=== PATIENT | male | born 1975 | race Hispanic/Latino ===

== ENCOUNTER 2017-12-08 17:05 | Inpatient (IN) | payer BC, MEDICARE ==
[~2017-12-08] VITALS: Ht 180.3 cm; Wt 110.3 kg
[~2017-12-08 17:05] MED LIST: ATIVAN0.5 MG PO; Calcium Carbonate PO; LEVAQUIN500 MG PO; METOPROLOL TART50 MG PO; NIFEDIPINE ER30 M1 PO; Nifedipine PO; PRINIVIL20 MG PO; ROCALTROL0.25 MCG PO; ULTRAM50 MG PO
[2017-12-08] MEDS ORDERED: CARVEDILOL3.125 MG PO (17:21)
[2017-12-08] MEDS ORDERED: HYDROMORPHONE 1MG/1ML INJ IV STA (17:29)
[2017-12-08] MEDS ORDERED: ONDANSETRON HCL INJ 2 MG/ML VIAL IV STA (17:29)
[2017-12-08] MEDS ORDERED: CEFEPIME HCL 2 GM VIAL IV STA (17:44)
[2017-12-08 17:52] LABS: BASOPHILS % 0.1 % (0.0-1.0); LYMPHOCYTES # (AUTO) 0.8 (1.0-3.2); LYMPHOCYTES % 3.8 % (18.0-39.1); MEAN CORPUSCULAR HEMOGLOBIN 31.4 pg (28-32); MEAN CORPUSCULAR HGB CONC 34.3 g/dL (31-35); MEAN CORPUSCULAR VOLUME 91.6 fL (81-99); MONOCYTES # (AUTO) 0.6 (0.2-0.8); MONOCYTES % 2.9 % (4.4-11.3); NEUTROPHILS # (AUTO) 19.8 (2.1-6.9); NEUTROPHILS % 92.5 % (38.7-80.0); PLATELET COUNT 270 x10e3/uL (140-360); RED BLOOD COUNT 3.82 x10e6/uL (4.3-5.7); RED CELL DISTRIBUTION WIDTH 12.9 % (11.7-14.4)
[2017-12-08] MEDS ORDERED: DIATRIZOATE MEGL/DIATRIZOA SOD 30 ML BTL PO ONE (17:58)
[2017-12-08 18:39] LABS: BODY FLUID APPEARANCE SL.CLOUDY; BODY FLUID COLOR YELLOW; BODY FLUID TYPE PERITONEAL
[2017-12-08 18:40] LABS: RBC,BODY FLUID 165 cells/uL; WBC,BODY FLUID 165 cells/uL
[2017-12-08] MEDS ORDERED: SODIUM CHLORIDE 0.9% 50ML 50 ML ONE ×2 (18:40→23:05)
[2017-12-08 19:35] LABS: EOSINOPHILS,BODY FLUID 2 %; LYMPHOCYTES,BODY FLUID 26 %; MONO/MACROPHG,BODY FLUID 26 %; NEUTROPHILS,BODY FLUID 44 %; OTHER CELLS,BODY FLUID 2 %
[2017-12-08 19:56] LABS: ALBUMIN 3.8 g/dL (3.5-5.0); ALBUMIN/GLOBULIN RATIO 0.9 (0.8-2.0); CALCIUM 8.7 mg/dL (8.4-10.2); CREATININE, SERUM 14.75 mg/dL (0.72-1.25)
[2017-12-08 20:26] LABS: BILIRUBIN,URINE NEGATIVE (NEGATIVE); CLARITY,URINE CLEAR (CLEAR); COLOR,URINE YELLOW (YELLOW); KETONES,URINE NEGATIVE (NEGATIVE); LEUKOCYTE ESTERASE ,URINE NEGATIVE (NEGATIVE); NITRITE,URINE NEGATIVE (NEGATIVE); PROTEIN,URINE DIPSTICK 2+ (NEGATIVE); URINE UROBILINOGEN 0.2 mg/dL (0.2 - 1)
--- NOTE | 2017-12-08 20:27 | Diagnostic Imaging Report ---
EXAM: CT ABDOMEN/PELVIS WO DATE: 12/08/2017 5:50 PM INDICATION: \S\GENERALIZED ABD PAIN ON PD \S\[id number] \S\1930 \S.br\COMPARISON: None TECHNIQUE: The abdomen and pelvis were scanned using a multidetector helical scanner. Coronal and sagittal reformations were obtained. IV Contrast: 0 ml Isovue 300/370 FINDINGS: Lack of IV contrast decreases sensitivity in evaluating abdominal and pelvic organs. LOWER THORAX: Bibasilar atelectasis. LIVER/BILIARY: No masses. No ductal dilatation. GALLBLADDER: Unremarkable SPLEEN: Unremarkable PANCREAS: Unremarkable ADRENALS: No nodules KIDNEYS: Small bilateral kidneys. Metallic density or coils in the left interpolar kidney. No hydronephrosis. GI TRACT: Prominent proximal small bowel loops (up to 3 cm) likely related to distention from administered oral contrast. No evidence of high-grade obstruction. VESSELS: Minimal scattered atherosclerotic calcification PERITONEUM/RETROPERITONEUM: Moderate abdominal and pelvic free fluid. No free air LYMPH NODES: No lymphadenopathy REPRODUCTIVE ORGANS/BLADDER: Unremarkable SOFT TISSUES: Left-sided approach perineal dialysis catheter terminates in the right pelvis. Focal fluid is seen along the superficial aspect of the catheter BONES: Findings which can be seen with renal osteodystrophy with subchondral endplate and SI joint resorption. IMPRESSION: 1. Moderate volume ascites. 2. Prominent proximal small bowel loops likely related to distention from administered oral contrast. No evidence of high-grade obstruction. Signed by: Dr Radha Gibbons MD on 12/08/2017 8:24 PM
[2017-12-08] MEDS ORDERED: VANCOMYCIN 1GM/NS 250 ML 250 ML IV STA (20:41)
[2017-12-08] MEDS ORDERED: SODIUM CHLORIDE FLUSH 10 ML SYR INJ PRN (21:00)
[2017-12-08 21:06] LABS: RBC,URINE 21-50 /HPF (0-5); WBC,URINE (MAN) 0-5 /HPF (0-5)
[2017-12-08 21:07] LABS: BACTERIA,URINE FEW /HPF
[2017-12-08] MEDS: MORPHINE SULFATE 2 MG/ML SYR IV PRN (21:33)
[2017-12-08] MEDS: ONDANSETRON HCL INJ 2 MG/ML VIAL IV PRN (21:33)
[2017-12-08] MEDS: CEFEPIME HCL 1 GM VIAL IV SCH (23:40)
[2017-12-08] MEDS: DOCUSATE SODIUM 100 MG CAP PO SCH (23:40)
[2017-12-09] MEDS: ONDANSETRON HCL INJ 2 MG/ML VIAL IV PRN ×6 (01:00→21:52)
[2017-12-09] MEDS: MORPHINE SULFATE 2 MG/ML SYR IV PRN ×4 (01:00→13:40)
[2017-12-09] MEDS ORDERED: SODIUM CHLORIDE 0.9% 250ML 250 ML ONE ×2 (04:48→17:51)
[2017-12-09 05:21] LABS: BASOPHILS # (AUTO) 0.1 (0.0-0.1); BASOPHILS % 0.2 % (0.0-1.0); EOSINOPHILS % 0.1 % (0.0-6.0); HEMATOCRIT 30.8 % (38.2-49.6); HEMOGLOBIN 10.7 g/dL (14.0-18.0); LYMPHOCYTES # (AUTO) 1.1 (1.0-3.2); MEAN CORPUSCULAR HEMOGLOBIN 32.3 pg (28-32); MEAN CORPUSCULAR HGB CONC 34.7 g/dL (31-35); MEAN CORPUSCULAR VOLUME 93.1 fL (81-99); MONOCYTES # (AUTO) 0.6 (0.2-0.8); MONOCYTES % 2.3 % (4.4-11.3); NEUTROPHILS # (AUTO) 24.3 (2.1-6.9); NEUTROPHILS % 92.7 % (38.7-80.0); PLATELET COUNT 203 x10e3/uL (140-360); RED BLOOD COUNT 3.31 x10e6/uL (4.3-5.7)
[2017-12-09 05:42] LABS: ALBUMIN 3.1 g/dL (3.5-5.0); ALBUMIN/GLOBULIN RATIO 0.8 (0.8-2.0); ANION GAP 20.1 mmol/L (8-16); CALCIUM 8.3 mg/dL (8.4-10.2); CREATININE, SERUM 14.47 mg/dL (0.72-1.25); POTASSIUM 4.1 mmol/L (3.5-5.1)
[2017-12-09] MEDS: CEFEPIME HCL 1 GM VIAL IV SCH ×2 (06:11→14:32)
[2017-12-09] MEDS: DOCUSATE SODIUM 100 MG CAP PO SCH (09:45)
[2017-12-09 13:15] VITALS: BP 130/76
[2017-12-09 13:22] VITALS: BP 130/76
[2017-12-09] MEDS ORDERED: RENAGEL800 MG PO (14:33)
--- NOTE | 2017-12-09 16:28 | Consultation ---
DATE OF CONSULTATION: December 09, 2017 RENAL CONSULTATION REQUESTING PHYSICIAN: Dr. Anthony Donovan REASONS FOR CONSULTATION 1. End-stage renal disease management. 2. Fluids, electrolytes and acid-base management. 3. Hyponatremia. HISTORY OF PRESENT ILLNESS: This is a pleasant, 42-year-old man with history of: 1. End-stage renal disease on peritoneal dialysis. 2. Hypertension. 3. Anemia. 4. History of biopsy-proven IgA nephropathy. 5. Cystoscopy. 6. Peritoneal dialysis catheter placement. The patient was admitted to [facility] for possible peritonitis after the patient presented with chief complaint of worsening abdominal pain with nausea. PD fluid was sent for cell count and culture. He had some surgical intervention of his PD catheter last week. No report of chest pain, shortness of breath, diarrhea or headache at the present time. Reports subjective fever and constipation. Labs today show serum creatinine 14.4 with BUN of 87. Serum sodium is 133. PAST MEDICAL HISTORY: As per HPI. PAST SURGICAL HISTORY: As per HPI. ALLERGIES TO MEDICATIONS: PER MAR. SOCIAL HISTORY: Negative x3. FAMILY HISTORY: Positive for hypertension. REVIEW OF SYSTEMS: Positive for abdominal pain with subjective fever and nausea as per HPI. The rest of the review of systems is essentially negative at the present time. No complaints of chest pain, shortness of breath, diarrhea, visual loss or headache. Also reports constipation. PHYSICAL EXAMINATION GENERAL: Pleasant man in bed in no acute respiratory distress at the present time. VITAL SIGNS: Blood pressure is 127/82, pulse 99, respiratory rate 12. HEENT: Pupils are reactive to light. NECK: Supple. CHEST: Lungs are clear to auscultation bilaterally. CARDIOVASCULAR: S1 and S2. ABDOMEN: Soft, positive tenderness. EXTREMITIES: Trace edema. NEUROLOGIC: Awake and alert. PSYCHIATRIC: Anxious. LABS: Serum sodium is 133, potassium 4.1, chloride 94, bicarbonate 23, BUN 87, creatinine 14.4, calcium 8.3, albumin 3.1. Hemoglobin 10.7. CT abdomen findings noted. ASSESSMENT 1. End-stage renal disease. 2. Hyponatremia. 3. Fluid overload. 4. Anemia. 5. Leukocytosis. 6. (?)Peritonitis. 7. Hypertension. 8. Obesity. 9. Abdominal pain. PLAN 1. Will do peritoneal dialysis tonight per orders for metabolic/volume clearance. 2. Fluid restriction plus low salt diet plus ultrafiltration on peritoneal dialysis for hyponatremia and fluid overload. 3. Serum potassium/acid base stable. Will monitor. 4. Monitor serum calcium, phosphorus and magnesium levels. 5. Monitor H and H levels. Hemoglobin level is at goal. Epogen as needed. 6. Blood pressure is stable, monitor. 7. Monitor WBC count plus panculture plus PD fluid for cell count and culture plus antibiotics for infectious diseases. 8. Renal dose all medications. 9. Strict I's and O's and daily weights. 10. Stool softener plus p.r.n. laxative for constipation. 11. Plan discussed with the patient, family, and the patient's nurse. Thank you for this interesting consult. We will continue to closely follow the patient with you. Please do not hesitate to call us for any further questions. Job#: [id number]
[2017-12-09 16:34] VITALS: BP 135/77
--- NOTE | 2017-12-09 16:36 | History and Physical ---
Medicine History and Physical covering for Paulette Bobby for today 12/09/2017, starting tomorrow, Dr. Binh Nickerson to cover for medicine. CHEST: Abdominal discomfort. HISTORY OF PRESENT ILLNESS: Mr. Soto is a 42-year-old man with history of hypertension and end-stage renal disease on peritoneal dialysis for now [address] Lott. Recent catheter exchanged approximately one week ago for malfunctioning device. He presents via the emergency department with complaints of abdominal discomfort that has gradually worsened over the last 2 days. Abdominal discomfort is described as diffuse, worse with coughing or deep inspiration. He has increasing abdominal girth. He denies any chest pain, lightheadedness, palpitations or other complaints. REVIEW OF SYSTEMS: A 12-system review negative except for as noted above. ALLERGIES: NONE REPORTED. PAST MEDICAL HISTORY: Hypertension and end-stage renal disease on peritoneal dialysis. SOCIAL HISTORY: Former history of alcohol abuse, none recent. Denies smoking. Denies drugs. FAMILY HISTORY: Noncontributory. MEDICATIONS: Reviewed. PHYSICAL EXAMINATION: VITAL SIGNS: Heart rate 80, blood pressure 130/70, O2 sat 96%. BMI of 34.7. Afebrile. GENERAL: No acute distress, alert and oriented x3. NECK: No JVD. CHEST: Clear to auscultation bilaterally. HEENT: Mucosa moist. CARDIOVASCULAR: Regular rate and rhythm. Normal S1 and S2. No S3, no S4, no murmurs, no rubs. ABDOMEN: Distended. Tender to palpation. Some mild borderline rebound which is diffuse. EXTREMITIES: Trace edema. STUDIES: Sodium 133, potassium 4.1, chloride 94, bicarbonate 23, BUN 87, creatinine 14.4, glucose 71, hemoglobin 10.7. White blood cells 26.2, platelets 203,000. AST 15, ALT 11, alkaline phosphatase 84, total bilirubin 0.9. Has neutrophilia/left shift. CT of the abdomen does not report any perforated viscus. ASSESSMENT: 1. Secondary bacterial peritonitis in a patient with end-stage renal disease on peritoneal dialysis with recent catheter exchange. 2. Hypertension. RECOMMENDATIONS: 1. Antibiotics initiated cefepime. Will continue. 2. Nephrology, Dr. Lott, has been consulted; appreciate input. 3. Infectious disease has been consulted. SCDs and TEDs. Peritoneal fluid sent for studies and consistent with above-listed diagnosis. 4. Guarded prognosis. Admit to the hospital. Job#: [id number] KVNG
[2017-12-09] MEDS: CARVEDILOL 3.125 MG TAB PO SCH (17:35)
[2017-12-09] MEDS: SEVELAMER CARBONATE 800 MG TAB PO SCH (17:35)
--- NOTE | 2017-12-09 17:53 | Consultation ---
DATE OF CONSULTATION: REASON FOR CONSULTATION: Sepsis present on admission, peritonitis. HISTORY OF PRESENT ILLNESS: This patient is a very pleasant, 42-year-old male with a history of hypertension, end-stage disease on hemodialysis, history of biopsy-proven IgA nephropathy, and cystoscopy, who has been on peritoneal dialysis for 2 years now; but the catheter started to get loose, so it was changed a week ago. He went home and started peritoneal dialysis. He came to the emergency room with fever, chills, abdominal pain, shortness of breath, not doing well. He came to the emergency room, and infectious disease was consulted. Discussed with the ER physician. Currently the patient is lying in bed comfortably. He is still short of breath. PAST MEDICAL HISTORY: As above. PAST SURGICAL HISTORY: As above. ALLERGIES: NKA. SOCIAL HISTORY: No smoking, drug abuse or alcohol abuse. FAMILY HISTORY: Hypertension. REVIEW OF SYSTEMS HEENT: There is some headache. No visual changes or hearing changes. GI: There is some nausea. No vomiting or diarrhea. : No history of frequency. SKIN: No rash. He does have abdominal pain. Patient looks also short of breath. LABORATORY DATA: Reviewed. The culture from the fluid is already showing gram-negative rods. PHYSICAL EXAMINATION GENERAL: He is currently alert, oriented, does not seem to be in acute distress. VITALS: Stable, currently afebrile. HEENT: Normocephalic. Not icteric. NECK: Supple. CHEST: Clear. HEART: S1, S2. No S3, S4 or murmur. ABDOMEN: Soft. Diffuse discomfort. EXTREMITIES Edema. The fluid looks kind of greenish. IMPRESSION 1. Peritonitis secondary to peritoneal dialysis, gram negative. Will put him on cefepime 1 gram IV piggyback daily and Cipro 500 mg IV piggyback daily. Removal of the peritoneal dialysis. Discussed with the patient. I would like to give dialysis and gentamicin if possible. Will discuss with renal. Obtain blood cultures. 2. End-stage renal disease. 3. Will follow. Job#: [id number]
[2017-12-09] MEDS: MORPHINE SULFATE INJ 4 MG/ML INJ IV PRN ×2 (17:55→21:52)
[2017-12-09] MEDS: CIPROFLOXACIN 400 MG/D5W 200ML 200 ML IV SCH (18:02)
[2017-12-09 20:00] VITALS: BP 108/71
[2017-12-10] VITALS (7 sets, daily range): BP systolic 116–142; BP diastolic 62–80
[2017-12-10] MEDS: ONDANSETRON HCL INJ 2 MG/ML VIAL IV PRN ×5 (02:00→19:58)
[2017-12-10] MEDS: MORPHINE SULFATE INJ 4 MG/ML INJ IV PRN ×5 (02:00→19:58)
[2017-12-10 06:14] LABS: ANION GAP 20.3 mmol/L (8-16); CREATININE, SERUM 15.64 mg/dL (0.72-1.25); MAGNESIUM 1.5 MG/DL (1.3-2.1); POTASSIUM 4.3 mmol/L (3.5-5.1)
[2017-12-10 06:50] LABS: PHOSPHORUS 8.3 MG/DL (2.3-4.7)
[2017-12-10] MEDS: SEVELAMER CARBONATE 800 MG TAB PO SCH ×3 (08:00→16:58)
[2017-12-10] MEDS: CEFEPIME HCL 1 GM VIAL IV SCH (09:23)
[2017-12-10] MEDS: DOCUSATE SODIUM 100 MG CAP PO SCH ×2 (09:23→16:58)
[2017-12-10] MEDS: CARVEDILOL 3.125 MG TAB PO SCH ×2 (09:23→16:58)
[2017-12-10 11:35] LABS: INR 1.66; PROTHROMBIN TIME 18.4 seconds (11.9-14.5)
[2017-12-10 11:36] LABS: PARTIAL THROMBOPLASTIN TIME 43.5 seconds (23.8-35.5)
[2017-12-10] MEDS ORDERED: GENTAMICIN 120MG/NS 100ML 100 ML IV ONE (15:00)
[2017-12-10] MEDS ORDERED: LIDOCAINE HCL 1% LOCAL INJ 20 ML VIAL ONE (15:01)
[2017-12-10] MEDS: CIPROFLOXACIN 400 MG/D5W 200ML 200 ML IV SCH (16:58)
--- NOTE | 2017-12-10 17:00 | Diagnostic Imaging Report ---
PROCEDURE: A single AP view of the chest. COMPARISON: None. INDICATIONS: POST LINE PLACEMENT FINDINGS: Lines/tubes: Interval placement of a left IJ non-tunneled central line which terminates in the expected region of the SVC. Lungs: Low lung volumes. Mild left perihilar opacities. Right lung is clear. Pleura: There is no pleural effusion or pneumothorax. Heart and mediastinum: The heart and the mediastinum are unremarkable. Bones: No acute bony abnormality. IMPRESSION: Left IJ non-tunneled catheter terminates in the expected region of the SVC. No evidence of pneumothorax. Low lung volumes with perihilar opacities which could represent atelectasis. Asymmetric edema or pneumonia can have a similar appearance. Dictated by: BRITTANY GILLIAM M.D. on 12/10/2017 at 17:06 Electronically approved by: BRITTANY GILLIAM M.D. on 12/10/2017 at 17:06
--- NOTE | 2017-12-10 17:02 | Diagnostic Imaging Report ---
PROCEDURE:US GUIDANCE FOR VASCULAR ACCESS COMPARISON:None. INDICATIONS:TRIALYSIS CATH FINDINGS:Ultrasound evaluation of potential access sites was performed. The right IJ vein appeared occluded. The left IJ vein was patent. After successfully identifying a patent vessel, US guidance was used to puncture the left IJ vein. A permanent recording was created for the patient record. CONCLUSION:Successful ultrasound guided access into the left IJ vein. The right IJ vein appeared occluded. Please refer to the dictation from the Trialysis catheter placement for further details. Dictated by: BRITTANY GILLIAM M.D. on 12/10/2017 at 17:07 Electronically approved by: BRITTANY GILLIAM M.D. on 12/10/2017 at 17:07
--- NOTE | 2017-12-10 17:17 | Diagnostic Imaging Report ---
PROCEDURE:NON-TUNNELLED CVC CATH PLACMNT COMPARISON:None. INDICATIONS: Requiring hemodialysis access COMPLICATIONS: No immediate complications MEDICATIONS: 10 cc of 1% subcutaneous lidocaine BLOOD LOSS: Minimal PROCEDURE: Initial ultrasound demonstrated occluded right internal jugular vein with a right external jugular vein collateral. Left internal jugular vein appeared patent and compressible. The left neck was prepped and draped in the usual sterile fashion. Left IJ vein was accessed with ultrasound guidance with a micropuncture needle. An .018'' wire was placed to secure access. A microsheath was placed and the .018'' wire was exchanged for an .035'' wire. Serial dilatation was performed. Subsequently, a 13 Fr x 20 cm Trialysis catheter was placed. The wire was removed. Brisk blood was aspirated from each lumen. Saline was flushed into each lumen. The catheter was secured with Ethilon sutures and a sterile dressing was placed. Post procedural chest radiograph demonstrated that the catheter terminated in the expected location of the SVC with no evidence of kinking or pneumothorax. CONCLUSION: Left IJ non-tunneled hemodialysis catheter (13 Fr x 20 cm Trialysis catheter) placement with ultrasound guidance. Catheter is ready for immediate use. Dictated by: BRITTANY GILLIAM M.D. on 12/10/2017 at 17:23 Electronically approved by: BRITTANY GILLIAM M.D. on 12/10/2017 at 17:23
[2017-12-10] MEDS ORDERED: METOCLOPRAMIDE HCL 10 MG/2ML VIAL IV PRN (18:15)
[2017-12-10] MEDS ORDERED: SODIUM CHLORIDE 0.9% 1000ML 1,000 ML ONE (21:50)
[2017-12-10] MEDS ORDERED: HEPARIN SOD (PORCINE) 5,000 UNIT/ML VIAL ONE (22:41)
[2017-12-10] MEDS ORDERED: HEPARIN SOD (PORCINE) 1000 UNIT/ML SDV ONE (22:43)
[2017-12-11] VITALS (7 sets, daily range): BP systolic 109–147; BP diastolic 66–93
--- NOTE | 2017-12-11 00:22 | Progress Note ---
DATE: December 10, 2017 INTERNAL MEDICINE PROGRESS NOTE This is coverage for Dr. Carson Bobby. SUBJECTIVE: Mr. Soto was seen and examined at bedside. He is on renal diet. He is eating about 70% of his tray. He is moving independently, although with some pain. Peritoneal cell count ended up being 165 white blood cells. 94% oxygen saturation. He had bowel movement. REVIEW OF SYSTEMS: No headaches, no double vision. OBJECTIVE VITAL SIGNS: Afebrile, vital signs noted per electronic record. GENERAL: In no acute distress, alert and calm. HEENT: Normocephalic, atraumatic. NECK: Supple. Throat midline. LUNGS: Bilateral air entry, decreased breath sounds at the base. CARDIOVASCULAR: S1, S2. No murmurs, rubs or gallops. ABDOMEN: Soft, nontender. EXTREMITIES: No clubbing, no cyanosis. There is no edema. INTEGUMENT: No rash, no purpura. LABS: 127 sodium, 4.3 potassium, 100 BUN, 15.6 creatinine. 26 white count, 31 hematocrit. Albumin is 3.1. Phosphorus is 8.3. IMPRESSIONS AND PLAN 1. Pseudomonas secondary to bacterial peritonitis. 2. infected peritoneal dialysis catheter. 3. End-stage renal disease, IgA nephropathy. 4. Hypertension. 5. Anemia. 6. Mild constipation. 7. Hyponatremia. 8. Worsening leukocytosis. Emergent hemodialysis catheter placement was requested. Peritoneal dialysis catheter to be removed soon by surgeon. Continue IV antibiotics by ID quality consultant. Continue pain management, which he is getting medicines every 4-5 hours for now and will follow this. Continue to follow up blood pressure and the increasing white count. Job#: [id number] CQ
[2017-12-11] MEDS: ONDANSETRON HCL INJ 2 MG/ML VIAL IV PRN ×4 (00:43→18:20)
[2017-12-11] MEDS: MORPHINE SULFATE INJ 4 MG/ML INJ IV PRN ×2 (00:43→06:13)
[2017-12-11] MEDS ORDERED: LACTULOSE SYRUP 20 GM/30 ML UDC PO PRN (05:45)
[2017-12-11 05:49] LABS: BASOPHILS % 0.2 % (0.0-1.0); EOSINOPHILS # (AUTO) 0.7 (0.0-0.4); EOSINOPHILS % 3.4 % (0.0-6.0); HEMATOCRIT 26.3 % (38.2-49.6); LYMPHOCYTES # (AUTO) 0.7 (1.0-3.2); LYMPHOCYTES % 3.6 % (18.0-39.1); MEAN CORPUSCULAR HEMOGLOBIN 31.6 pg (28-32); MEAN CORPUSCULAR HGB CONC 34.2 g/dL (31-35); MEAN CORPUSCULAR VOLUME 92.3 fL (81-99); MONOCYTES # (AUTO) 0.9 (0.2-0.8); MONOCYTES % 4.5 % (4.4-11.3); NEUTROPHILS # (AUTO) 17.1 (2.1-6.9); NEUTROPHILS % 87.4 % (38.7-80.0); PLATELET COUNT 189 x10e3/uL (140-360); RED BLOOD COUNT 2.85 x10e6/uL (4.3-5.7); RED CELL DISTRIBUTION WIDTH 12.9 % (11.7-14.4)
[2017-12-11 06:26] LABS: ANION GAP 18.8 mmol/L (8-16); CALCIUM 9.5 mg/dL (8.4-10.2); CREATININE, SERUM 12.97 mg/dL (0.72-1.25); MAGNESIUM 1.8 MG/DL (1.3-2.1); POTASSIUM 3.8 mmol/L (3.5-5.1)
[2017-12-11 06:51] LABS: PHOSPHORUS 6.4 MG/DL (2.3-4.7)
[2017-12-11] MEDS: SEVELAMER CARBONATE 800 MG TAB PO SCH ×3 (07:41→17:00)
--- NOTE | 2017-12-11 08:05 | Consultation ---
DATE OF CONSULTATION: December 11, 2017 REFERRING PHYSICIANS: Dr. Sallie Gunter and Dr. Paulette Bobby. HISTORY OF PRESENT ILLNESS: The patient is a 42-year-old male with history of hypertension and end-stage renal disease who presented with complaints of abdominal pain. He had a new peritoneal dialysis catheter placed about 10 days ago. Cultures from the peritoneal fluid grew pseudomonas. The patient continues to complain of abdominal pain. He currently has a temporary hemodialysis catheter in place and started on hemodialysis. PAST MEDICAL HISTORY: Significant for hypertension and end-stage renal disease. Has been on peritoneal dialysis for several years. MEDICATIONS: Listed in chart. ALLERGIES: NO KNOWN ALLERGIES. PREVIOUS SURGERIES: Include placement of hemodialysis catheter. FAMILY HISTORY: Noncontributory. SOCIAL HISTORY: The patient has history of alcohol use. Does not drink now. Does not smoke cigarettes. REVIEW OF SYSTEMS: As stated above. He has not had fever. PHYSICAL EXAMINATION GENERAL: The patient is awake and alert. VITAL SIGNS: Normal. HEENT: Unremarkable. NECK: Dialysis catheter in place. LUNGS: Equal breath sounds are clear bilaterally. CARDIAC: Regular rate and rhythm. ABDOMEN: Mildly distended. There is diffuse tenderness with diffuse signs of peritonitis. EXTREMITIES: Slight edema. LAB TESTS: White blood cell count today is 19.6, down from 26,000 two days ago. Chemistries show elevated BUN and creatinine. ASSESSMENT: A 42-year-old male with primary bacterial peritonitis secondary to peritoneal dialysis with probably infected dialysis catheter. PLAN: Removal of the dialysis catheter to be done tomorrow. Procedure was explained to the patient. Thank you for asking see to see Mr. Soto. Job#: [id number]
[2017-12-11] MEDS ORDERED: KETOROLAC TROMETHAMINE 30 MG/ML VIAL IV STA (09:53)
[2017-12-11] MEDS: HYDROMORPHONE 1MG/1ML INJ IV PRN ×2 (10:50→18:20)
[2017-12-11] MEDS ORDERED: SODIUM CHLORIDE 0.9% 250ML 500 ML IV PRN (13:15)
[2017-12-11] MEDS ORDERED: SODIUM CHLORIDE 0.9% 1000ML 2,000 ML IV PRN (13:15)
[2017-12-11] MEDS ORDERED: HEPARIN SOD (PORCINE) 1000 UNIT/ML SDV IV PRN (13:15)
[2017-12-11] MEDS ORDERED: ALBUMIN 25% 12.5GM 0.25 GM/ML BTL IV PRN (13:15)
[2017-12-11] MEDS ORDERED: MANNITOL 25% 12.5GM/50 ML VIAL IV PRN (13:15)
[2017-12-11] MEDS ORDERED: KETOROLAC TROMETHAMINE 30 MG/ML VIAL IV NR (14:30)
[2017-12-11] MEDS: CARVEDILOL 3.125 MG TAB PO SCH ×2 (14:32→17:00)
[2017-12-11] MEDS: CEFEPIME HCL 1 GM VIAL IV SCH (14:32)
[2017-12-11] MEDS: DOCUSATE SODIUM 100 MG CAP PO SCH ×2 (14:34→18:20)
[2017-12-11] MEDS: CIPROFLOXACIN 400 MG/D5W 200ML 200 ML IV SCH (18:20)
[2017-12-12] VITALS (8 sets, daily range): BP systolic 119–149; BP diastolic 60–94
[2017-12-12] MEDS: ONDANSETRON HCL INJ 2 MG/ML VIAL IV PRN (01:14)
[2017-12-12] MEDS: HYDROMORPHONE 1MG/1ML INJ IV PRN ×4 (01:14→20:00)
[2017-12-12 05:51] LABS: BASOPHILS # (AUTO) 0.1 (0.0-0.1); BASOPHILS % 0.3 % (0.0-1.0); EOSINOPHILS # (AUTO) 0.3 (0.0-0.4); EOSINOPHILS % 1.8 % (0.0-6.0); HEMATOCRIT 29.3 % (38.2-49.6); HEMOGLOBIN 9.8 g/dL (14.0-18.0); LYMPHOCYTES # (AUTO) 0.8 (1.0-3.2); LYMPHOCYTES % 4.5 % (18.0-39.1); MEAN CORPUSCULAR HEMOGLOBIN 31.6 pg (28-32); MEAN CORPUSCULAR HGB CONC 33.4 g/dL (31-35); MEAN CORPUSCULAR VOLUME 94.5 fL (81-99); MONOCYTES # (AUTO) 1.2 (0.2-0.8); MONOCYTES % 6.5 % (4.4-11.3); NEUTROPHILS % 85.9 % (38.7-80.0); PLATELET COUNT 247 x10e3/uL (140-360)
[2017-12-12 06:07] LABS: INR 1.35; PROTHROMBIN TIME 15.7 seconds (11.9-14.5)
--- NOTE | 2017-12-12 06:19 | Progress Note ---
DATE: December 11, 2017 INTERNAL MEDICINE PROGRESS NOTE This is coverage for Dr. Bobby. SUBJECTIVE: Patient was seen and examined at bedside. Patient was on room air FiO2. No bowel movements. No respiratory distress overnight. Still some abdominal pain which is very limiting and requiring some pain medicines. Hemodialysis catheter temporary still in IJ position, left side. Patient had hemodialysis the day before. Peritoneal dialysis catheter still in place. REVIEW OF SYSTEMS: No headaches, no double vision. OBJECTIVE: VITAL SIGNS: Afebrile, vital signs noted per electronic record. GENERAL: In no acute distress, alert and calm. HEENT: Normocephalic, atraumatic. NECK: Supple. Throat midline. LUNGS: Bilateral air entry, limited air entry due to splinting. ABDOMEN: Obese, slight distended, and some pain. EXTREMITIES: No clubbing, no cyanosis, there is trace edema. INTEGUMENT: No rash, no purpura. IMPRESSION AND PLAN: 1. Pseudomonas bacterial peritonitis, secondary. 2. Infected peritoneal dialysis catheter. 3. End-stage renal disease, Immunoglobulin A nephropathy. 4. Hypertension. 5. Anemia. 6. Constipation. 7. Hyponatremia. 8. Significant leukocytosis. 9. Abdominal pain. Peritoneal dialysis catheter to be removed tomorrow. Hemodialysis to be continued according to schedule per renal. They are getting temporary dialysis chair as most likely outpatient solution for near term. Continue intravenous antibiotics by the infectious disease datastage consultant. Pain management to be continued. Repeat blood count tomorrow and ensure improvement. Currently on ciprofloxacin and cefepime as antibiotics. Job#: [id number]
[2017-12-12 06:25] LABS: ALBUMIN 2.7 g/dL (3.5-5.0); ALBUMIN/GLOBULIN RATIO 0.6 (0.8-2.0); CALCIUM 9.5 mg/dL (8.4-10.2); CREATININE, SERUM 10.35 mg/dL (0.72-1.25)
--- NOTE | 2017-12-12 06:45 | Diagnostic Imaging Report ---
EXAM: CHEST SINGLE (PORTABLE), AP 1 view INDICATION: Congestive heart failure COMPARISON: AP view the chest December 10, 2017 FINDINGS: LINES/TUBES: Left internal jugular vein central line with tip terminating at the expected location of the left brachiocephalic vein/superior vena cava junction. LUNGS: Mild bibasilar atelectasis PLEURA: No effusions or pneumothorax. HEART AND MEDIASTINUM: Stable BONES AND SOFT TISSUES: No acute findings. IMPRESSION: Interval placement of left internal jugular vein central line, otherwise no significant interval change in appearance of the chest. Signed by: Dr. Bernadine Loera M.D. on 12/12/2017 6:41 AM
[2017-12-12 06:47] LABS: PHOSPHORUS 5.5 MG/DL (2.3-4.7)
[2017-12-12] MEDS: CARVEDILOL 3.125 MG TAB PO SCH ×2 (08:00→17:00)
[2017-12-12] MEDS: SEVELAMER CARBONATE 800 MG TAB PO SCH ×3 (08:00→17:00)
[2017-12-12] MEDS: DOCUSATE SODIUM 100 MG CAP PO SCH ×2 (09:00→17:00)
[2017-12-12] MEDS: CEFEPIME HCL 1 GM VIAL IV SCH (09:00)
[2017-12-12] MEDS ORDERED: HYDROMORPHONE 1MG/1ML INJ IV STA (10:58)
[2017-12-12] MEDS ORDERED: SODIUM CHLORIDE 0.9% 500ML 500 ML ONE (13:19)
[2017-12-12] MEDS ORDERED: LIDOCAINE HCL 1% LOCAL INJ 20 ML VIAL ONE (13:37)
--- NOTE | 2017-12-12 15:44 | Operative Report ---
DATE OF PROCEDURE: December 12, 2017 PREOPERATIVE DIAGNOSES: 1. Primary peritonitis. 2. Infected peritoneal dialysis catheter. POSTOPERATIVE DIAGNOSES: 1. Primary peritonitis. 2. Infected peritoneal dialysis catheter. PROCEDURE PERFORMED: Removal peritoneal dialysis catheter. HAT MEASURER: None. ANESTHESIA: General. INDICATIONS AND FINDINGS: Patient is a 42-year-old male who was admitted to the hospital with findings suggestive of peritonitis and infected peritoneal dialysis catheter. At surgery there was cloudy fluid in the peritoneal cavity, which was removed. Sample was sent for culture and sensitivity and the catheter was removed intact. TECHNIQUE: After adequate general anesthesia with the patient in the supine position, the abdomen was prepped and draped in sterile fashion with [place] solution. Over the area of the second cuff, incision was made and carried down through subcutaneous tissue. The catheter was identified and followed down to the cuff. The cuff was freed from the surrounding tissues and the catheter was then delivered from the peritoneal cavity intact. The fluid from the peritoneal cavity was aspirated as much as possible and samples were taken for culture and sensitivity. The second cuff was also freed from the subcutaneous tissue and the catheter was completely removed. Hemostasis was seen to be adequate. The wound was irrigated with saline. The wound was then closed with 3-0 Vicryl to the deep subcutaneous tissue and susan for the skin. A sterile dressing was applied. Patient tolerated procedure well. Estimated blood loss was less than 5 mL. There were no complications. All counts were correct. Patient was taken to the recovery room in satisfactory condition. Job#: [id number]
[2017-12-12] MEDS ORDERED: MIDAZOLAM HCL 2 MG/2 ML VIAL ONE (16:38)
[2017-12-12] MEDS ORDERED: FENTANYL CITRATE/PF 100MCG/2 ML INJ ONE (16:38)
[2017-12-12] MEDS ORDERED: ONDANSETRON HCL INJ 2 MG/ML VIAL ONE (17:09)
[2017-12-12] MEDS ORDERED: SEVOFLURANE INHAL SOLN 250 ML PEN BTL ONE (17:09)
[2017-12-12] MEDS ORDERED: LIDOCAINE HCL 2% LOCAL INJ 5 ML SDV VIAL INJ ONE (17:09)
[2017-12-12] MEDS ORDERED: DEXAMETHASONE SOD PHOS INJ 4 MG/ML VIAL ONE (17:09)
[2017-12-12] MEDS ORDERED: PROPOFOL IV EMULSION 10 MG/ML 20 ML VIAL ONE (17:09)
[2017-12-12] MEDS: CIPROFLOXACIN 400 MG/D5W 200ML 200 ML IV SCH (17:30)
[2017-12-13] VITALS (8 sets, daily range): BP systolic 143–152; BP diastolic 86–102
--- NOTE | 2017-12-13 03:04 | Progress Note ---
DATE: December 12, 2017 INTERNAL MEDICINE PROGRESS NOTE This is coverage for Dr. Bobby. SUBJECTIVE: Mr. Soto was seen and examined at bedside. He had dialysis today. 97% oxygen saturation on room air. 0.7 L in, 2.3 L out recorded. Chest x-ray is mostly clear except for low lung volumes. He is having a lot of pain. Patient was scheduled for removal of peritoneal dialysis catheter which was done successfully by surgeon. REVIEW OF SYSTEMS: No bleeding, no diarrhea. OBJECTIVE: VITAL SIGNS: Afebrile, vital signs noted per electronic record. GENERAL: In no acute distress, alert and calm, but looks very much in pain. HEENT: Normocephalic, atraumatic. Throat midline. NECK: Supple. LUNGS: Bilateral air entry, decreased breath sounds at base, a few rhonchi. CARDIOVASCULAR: S1, S2. No murmurs, rubs or gallops. ABDOMEN: Soft, nontender. EXTREMITIES: No clubbing, no cyanosis. There is no large edema. INTEGUMENT: No rash or purpura. LABS: 130 sodium, 10.3 creatinine. 19 white count, 29 hematocrit. IMPRESSION: 1. Bacterial peritonitis, pseudomonas. 2. Secondary . 3. Infected peritoneal dialysis catheter. 4. End-stage renal disease, IgA nephropathy. 5. Hypertension. 6. Anemia. 7. Mild constipation. 8. Hyponatremia. 9. Leukocytosis. PLAN: Continue hemodialysis today. Would go 4 L out. Thereafter, we hope to get him to operating room which he did have. Continue postoperative wound care thereafter. Recheck labs tomorrow and make sure the white count improves. We expect changing to permanent dialysis catheter as blood cultures come back negative. The patient is on replacement for outpatient dialysis, but will likely be in the hospital until next week given the severity of the peritoneal infection. Continue IV antibiotics. Job#: [id number]
[2017-12-13] MEDS: HYDROMORPHONE 1MG/1ML INJ IV PRN ×2 (03:16→09:35)
[2017-12-13 05:46] LABS: BASOPHILS # (AUTO) 0.1 (0.0-0.1); BASOPHILS % 0.3 % (0.0-1.0); HEMATOCRIT 27.7 % (38.2-49.6); HEMOGLOBIN 9.4 g/dL (14.0-18.0); LYMPHOCYTES # (AUTO) 0.6 (1.0-3.2); LYMPHOCYTES % 3.1 % (18.0-39.1); MEAN CORPUSCULAR HEMOGLOBIN 31.9 pg (28-32); MEAN CORPUSCULAR HGB CONC 33.9 g/dL (31-35); MEAN CORPUSCULAR VOLUME 93.9 fL (81-99); MONOCYTES # (AUTO) 0.9 (0.2-0.8); MONOCYTES % 4.3 % (4.4-11.3); NEUTROPHILS # (AUTO) 18.2 (2.1-6.9); NEUTROPHILS % 91.2 % (38.7-80.0); PLATELET COUNT 244 x10e3/uL (140-360); RED BLOOD COUNT 2.95 x10e6/uL (4.3-5.7)
[2017-12-13 06:13] LABS: ANION GAP 21.6 mmol/L (8-16); CALCIUM 9.4 mg/dL (8.4-10.2); CREATININE, SERUM 8.69 mg/dL (0.72-1.25); MAGNESIUM 1.9 MG/DL (1.3-2.1); POTASSIUM 4.6 mmol/L (3.5-5.1)
[2017-12-13] MEDS: CEFEPIME HCL 1 GM VIAL IV SCH (08:00)
[2017-12-13] MEDS: CARVEDILOL 3.125 MG TAB PO SCH ×2 (08:00→17:00)
[2017-12-13] MEDS: SEVELAMER CARBONATE 800 MG TAB PO SCH ×3 (08:00→17:00)
[2017-12-13] MEDS: DOCUSATE SODIUM 100 MG CAP PO SCH ×2 (08:00→17:00)
[2017-12-13] MEDS: CLONIDINE HCL 0.1 MG TAB PO SCH ×2 (17:00→21:26)
[2017-12-13] MEDS: CIPROFLOXACIN 400 MG/D5W 200ML 200 ML IV SCH (17:30)
[2017-12-14] VITALS (13 sets, daily range): BP systolic 105–173; BP diastolic 60–110
--- NOTE | 2017-12-14 01:02 | Progress Note ---
DATE: December 13, 2017 INTERNAL MEDICINE PROGRESS NOTE This is coverage for Dr. Bobby. SUBJECTIVE: Mr. Hansen was seen and examined at bedside. He feels much better after the peritoneal catheter was successfully removed yesterday. Much less pain. He is eating almost normal. We have confirmation that hemodialysis outpatient setup has been made. REVIEW OF SYSTEMS: No diarrhea, no bleeding. There is some constipation slightly. OBJECTIVE: VITAL SIGNS: Afebrile, vital signs noted per electronic record. GENERAL: In no acute distress, looks less pale, more energy. HEENT: Normocephalic, atraumatic. NECK: Supple. Throat midline. LUNGS: Bilateral air entry, low lung volumes, but clear. CARDIOVASCULAR: S1, S2. No murmurs, rubs, or gallops. ABDOMEN: Soft, nontender. EXTREMITIES: No clubbing, no cyanosis, there is the small edema. INTEGUMENT: No rash, no purpura. LABS: Include 20 white count, 29 hematocrit, 244,000 platelets. 133 sodium, 4.6 potassium, 48 BUN, 8.7 creatinine. IMPRESSION AND PLAN: 1. Infected peritoneal dialysis catheter. 2. Secondary peritonitis. 3. 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 4. Hypertension, anemia, mild constipation, hyponatremia. 5. Persistent leukocytosis. Continue antibiotics against Pseudomonas infection. Follow up postoperative wound care. Pain medicines have been decreased over last day due to decreased needs. Continue to follow up serial electrolytes, ensure the blood count improves tomorrow, namely the white blood cell count. Continue to optimize nutrition. As he gets better, likely tomorrow will get a permanent dialysis access that is tunneled. Job#: [id number]
[2017-12-14 05:51] LABS: BASOPHILS # (AUTO) 0.1 (0.0-0.1); BASOPHILS % 0.3 % (0.0-1.0); EOSINOPHILS # (AUTO) 0.2 (0.0-0.4); EOSINOPHILS % 1.3 % (0.0-6.0); HEMATOCRIT 26.9 % (38.2-49.6); HEMOGLOBIN 8.9 g/dL (14.0-18.0); LYMPHOCYTES # (AUTO) 1.1 (1.0-3.2); LYMPHOCYTES % 6.7 % (18.0-39.1); MEAN CORPUSCULAR HEMOGLOBIN 31.3 pg (28-32); MEAN CORPUSCULAR HGB CONC 33.1 g/dL (31-35); MEAN CORPUSCULAR VOLUME 94.7 fL (81-99); MONOCYTES # (AUTO) 1.1 (0.2-0.8); NEUTROPHILS # (AUTO) 13.4 (2.1-6.9); NEUTROPHILS % 83.2 % (38.7-80.0); PLATELET COUNT 263 x10e3/uL (140-360); RED BLOOD COUNT 2.84 x10e6/uL (4.3-5.7); RED CELL DISTRIBUTION WIDTH 12.8 % (11.7-14.4)
[2017-12-14] MEDS ORDERED: MIDAZOLAM HCL 2 MG/2 ML VIAL ONE ×2 (07:24→09:00)
[2017-12-14] MEDS ORDERED: SODIUM CHLORIDE 0.9% 500ML 1,000 ML ONE (07:24)
[2017-12-14] MEDS ORDERED: FENTANYL CITRATE/PF 100MCG/2 ML INJ ONE ×2 (07:24→09:00)
[2017-12-14] MEDS ORDERED: LIDOCAINE HCL 2% LOCAL 20 ML VIAL ONE ×2 (07:24→09:22)
[2017-12-14] MEDS ORDERED: HEPARIN SOD (PORCINE) 1000 UNIT/ML 30ML ONE (07:24)
[2017-12-14] MEDS: CARVEDILOL 3.125 MG TAB PO SCH ×2 (08:00→19:27)
[2017-12-14] MEDS: SEVELAMER CARBONATE 800 MG TAB PO SCH ×3 (08:00→19:27)
[2017-12-14] MEDS: CLONIDINE HCL 0.1 MG TAB PO SCH ×3 (09:00→21:00)
[2017-12-14] MEDS: DOCUSATE SODIUM 100 MG CAP PO SCH ×2 (09:00→19:22)
[2017-12-14] MEDS ORDERED: HYDROMORPHONE 1MG/1ML INJ ONE (10:08)
[2017-12-14] MEDS: HYDROMORPHONE 1MG/1ML INJ IV PRN ×2 (10:12→19:00)
[2017-12-14] MEDS: CEFEPIME HCL 1 GM VIAL IV SCH (12:30)
[2017-12-14] MEDS: HYDROCODONE/APAP 5MG-325MG TAB PO PRN ×2 (14:04→21:30)
[2017-12-14] MEDS: CIPROFLOXACIN 400 MG/D5W 200ML 200 ML IV SCH (19:27)
[2017-12-15] VITALS (9 sets, daily range): BP systolic 117–141; BP diastolic 60–89
[2017-12-15] MEDS: HYDROMORPHONE 1MG/1ML INJ IV PRN (02:33)
--- NOTE | 2017-12-15 02:57 | Progress Note ---
DATE: December 14, 2017 INTERNAL MEDICINE PROGRESS NOTE SUBJECTIVE: Mr. Soto was seen and examined at bedside. On 2 L per minute by nasal cannula. The patient went to OR today for permanent catheter placement. The patient with a lot of pain at the chest site. However, there is less nausea and he feels he will be able to eat shortly. REVIEW OF SYSTEMS: No diarrhea, no constipation. OBJECTIVE VITAL SIGNS: Afebrile, vital signs noted per electronic record. GENERAL: No acute distress, alert and calm. HEENT: Normocephalic, atraumatic. Throat midline. NECK: Supple. LUNGS: Bilateral air entry, decreased breath sounds due to . CARDIOVASCULAR: S1, S2. No murmurs, rubs or gallops. ABDOMEN: Soft, nontender. EXTREMITIES: No clubbing, no cyanosis. There is trace edema. INTEGUMENT: No rash. No purpura. LABS: White count 16, hematocrit 27, platelets 263,000. Sodium 133, potassium 4.6, creatinine 8.7, magnesium 1.9. IMPRESSION 1. Pseudomonas peritonitis. 2. Infected peritoneal dialysis catheters, status post removal. 3. End-stage renal disease, IgA nephropathy. 4. Hypertension. 5. Anemia. 6. History of mild constipation. 7. Hyponatremia, improving. 8. Severe abdominal pain, much better. PLAN: As blood cultures have come back negative, PermCath was ordered and placed today. The patient has been successfully placed for hemodialysis as an outpatient at a facility as he will not be on peritoneal dialysis further. 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 Continue to follow up closely and continue pain medicines which are rapidly being decreased. Job#: [id number] CLAUDIO
[2017-12-15] MEDS: HYDROCODONE/APAP 5MG-325MG TAB PO PRN ×3 (04:46→19:29)
[2017-12-15 05:37] LABS: BASOPHILS % 0.3 % (0.0-1.0); EOSINOPHILS # (AUTO) 0.1 (0.0-0.4); EOSINOPHILS % 1.1 % (0.0-6.0); HEMATOCRIT 28.5 % (38.2-49.6); HEMOGLOBIN 9.5 g/dL (14.0-18.0); LYMPHOCYTES % 8.5 % (18.0-39.1); MEAN CORPUSCULAR HEMOGLOBIN 31.4 pg (28-32); MEAN CORPUSCULAR HGB CONC 33.3 g/dL (31-35); MEAN CORPUSCULAR VOLUME 94.1 fL (81-99); MONOCYTES # (AUTO) 1.2 (0.2-0.8); MONOCYTES % 10.5 % (4.4-11.3); NEUTROPHILS # (AUTO) 9.2 (2.1-6.9); NEUTROPHILS % 77.7 % (38.7-80.0); PLATELET COUNT 295 x10e3/uL (140-360); RED BLOOD COUNT 3.03 x10e6/uL (4.3-5.7); RED CELL DISTRIBUTION WIDTH 12.8 % (11.7-14.4)
[2017-12-15] MEDS: SEVELAMER CARBONATE 800 MG TAB PO SCH ×3 (08:01→17:00)
[2017-12-15] MEDS: CLONIDINE HCL 0.1 MG TAB PO SCH ×3 (09:00→20:51)
[2017-12-15] MEDS: CARVEDILOL 3.125 MG TAB PO SCH ×2 (09:31→17:19)
[2017-12-15] MEDS: DOCUSATE SODIUM 100 MG CAP PO SCH ×2 (09:32→17:19)
[2017-12-15] MEDS ORDERED: ONDANSETRON HCL 4 MG ORAL DISINTEGRATING TAB PO PRN (13:00)
[2017-12-15] MEDS: POLYETHYLENE GLYCOL 3350 17 GM PACK PO PRN (17:20)
[2017-12-15] MEDS: CIPROFLOXACIN 500 MG TAB PO SCH (20:51)
[2017-12-16] VITALS (8 sets, daily range): BP systolic 117–140; BP diastolic 60–83
[2017-12-16] MEDS: HYDROCODONE/APAP 5MG-325MG TAB PO PRN ×3 (02:04→17:45)
[2017-12-16] MEDS: SEVELAMER CARBONATE 800 MG TAB PO SCH ×3 (08:00→17:00)
[2017-12-16] MEDS: CARVEDILOL 3.125 MG TAB PO SCH ×2 (08:52→17:06)
[2017-12-16] MEDS: CLONIDINE HCL 0.1 MG TAB PO SCH ×3 (09:36→20:26)
[2017-12-16] MEDS: DOCUSATE SODIUM 100 MG CAP PO SCH ×2 (09:36→17:06)
[2017-12-16] MEDS: CIPROFLOXACIN 500 MG TAB PO SCH (20:30)
[2017-12-17] VITALS (7 sets, daily range): BP systolic 132–149; BP diastolic 76–93
[2017-12-17] MEDS: HYDROCODONE/APAP 5MG-325MG TAB PO PRN ×4 (00:10→21:17)
[2017-12-17] MEDS: SEVELAMER CARBONATE 800 MG TAB PO SCH ×3 (08:00→16:29)
[2017-12-17] MEDS: DOCUSATE SODIUM 100 MG CAP PO SCH ×2 (08:04→16:29)
[2017-12-17] MEDS: CARVEDILOL 3.125 MG TAB PO SCH ×2 (08:04→16:29)
[2017-12-17] MEDS: CLONIDINE HCL 0.1 MG TAB PO SCH ×3 (08:04→21:16)
[2017-12-17] MEDS: POLYETHYLENE GLYCOL 3350 17 GM PACK PO PRN (08:12)
--- NOTE | 2017-12-17 11:38 | Discharge Summary ---
PRIMARY CARE DOCTOR: None. FINAL DIAGNOSIS: Pansensitive pseudomonas peritonitis due to peritoneal dialysis catheter. SECONDARY DIAGNOSES 1. End-stage renal disease. 2. Hypertension. CONSULTANTS 1. Dr. Stokes, surgery. 2. Dr. Gunter, nephrology. 3. Dr. Jordan, infectious disease. PROCEDURES/STUDIES PERFORMED 1. Permanent dialysis catheter placed. 2. Peritoneal dialysis catheter removed. 3. Abdominal CT. HISTORY: Per [facility] HOSPITAL COURSE: The patient was found to have peritonitis. Subsequently, culture grew pansensitive pseudomonas. Initially, a Abdirahman catheter was placed. The patient was dialyzed through it. Initially, the patient was on IV cefepime and IV Cipro. Subsequently, this was converted to oral Cipro renal dosed. The patient will go home today on 2 more weeks of oral Cipro. His peritoneal dialysis catheter was removed by Dr. Stokes, and a permanent tunneled catheter was placed by interventional radiologist. The patient was seen and examined today. It took 32 minutes total to discharge this patient today. CONDITION ON DISCHARGE: Stable. DISCHARGE MEDICATIONS: Please see medication reconciliation form. SHILPA PORTILLO M.D. Job#: [id number]
[2017-12-17] MEDS ORDERED: LACTULOSE SYRUP 20 GM/30 ML UDC PO ONE (11:45)
[2017-12-17] MEDS ORDERED: ALTEPLASE RECOMBINANT 2 MG/2 ML VIAL IV ONE (15:30)
[2017-12-17] MEDS ORDERED: HEPARIN SOD (PORCINE) 1000 UNIT/ML SDV IV PRN (15:30)
[2017-12-17 16:07] LABS: BASOPHILS % 0.4 % (0.0-1.0); EOSINOPHILS # (AUTO) 0.3 (0.0-0.4); HEMATOCRIT 23.8 % (38.2-49.6); HEMOGLOBIN 8.2 g/dL (14.0-18.0); LYMPHOCYTES # (AUTO) 1.1 (1.0-3.2); MEAN CORPUSCULAR HEMOGLOBIN 31.8 pg (28-32); MEAN CORPUSCULAR HGB CONC 34.5 g/dL (31-35); MEAN CORPUSCULAR VOLUME 92.2 fL (81-99); MONOCYTES # (AUTO) 0.8 (0.2-0.8); MONOCYTES % 7.3 % (4.4-11.3); NEUTROPHILS # (AUTO) 8.7 (2.1-6.9); NEUTROPHILS % 77.2 % (38.7-80.0); PLATELET COUNT 329 x10e3/uL (140-360); RED BLOOD COUNT 2.58 x10e6/uL (4.3-5.7); RED CELL DISTRIBUTION WIDTH 12.6 % (11.7-14.4)
[2017-12-17 16:22] LABS: ANION GAP 22.6 mmol/L (8-16); CALCIUM 8.6 mg/dL (8.4-10.2); CREATININE, SERUM 12.88 mg/dL (0.72-1.25); POTASSIUM 4.6 mmol/L (3.5-5.1)
[2017-12-17 17:13] LABS: HYPOCHROMASIA SLIGHT; LYMPHOCYTES % (MANUAL) 7 % (19-48); METAMYELOCYTES % (MANUAL) 1 % (0-0); MONOCYTES % (MANUAL) 5 % (3.4-9.0); NEUTROPHILS % (MANUAL) 86 % (40-74); PLATELET ESTIMATE ADEQUATE; PLATELET MORPHOLOGY COMMENT NORMAL; RBC MORPHOLOGY COMMENT NORMAL
[2017-12-17] MEDS ORDERED: CIPRO500 MG PO (17:57)
[2017-12-17] MEDS ORDERED: NORCO 5-325 TA1 EACH PO (17:58)
[2017-12-17] MEDS: CIPROFLOXACIN 500 MG TAB PO SCH (21:16)
== END 2017-12-17 23:04 | disposition home or self-care (01) | DRG 981 ==
LOC: ER 17:05 → ERHOLD 21:05 → MED/SURG3 12-09 13:09
PROVIDERS: ADMIT Internal Medicine; ATTEND Internal Medicine
PROC: 3E1M39Z Irrigation of Peritoneal Cavity using Dialysate, Percutaneous Approach (ICD-10-PCS; 2017-12-09)
PROC: 02HV33Z Insertion of Infusion Device into Superior Vena Cava, Percutaneous Approach (ICD-10-PCS; 2017-12-10)
PROC: 5A1D70Z Performance of Urinary Filtration, Intermittent, Less than 6 Hours Per Day (ICD-10-PCS; 2017-12-10)
PROC: 0WPG03Z Removal of Infusion Device from Peritoneal Cavity, Open Approach (ICD-10-PCS; principal; 2017-12-12 13:42)
PROC: 0JH63XZ Insertion of Tunneled Vascular Access Device into Chest Subcutaneous Tissue and Fascia, Percutaneous Approach (ICD-10-PCS; 2017-12-14)
PROC: 02HV33Z Insertion of Infusion Device into Superior Vena Cava, Percutaneous Approach (ICD-10-PCS; 2017-12-14)
PROC: 02PY33Z Removal of Infusion Device from Great Vessel, Percutaneous Approach (ICD-10-PCS; 2017-12-14)
DX: T85.71XA Infection and inflammatory reaction due to peritoneal dialysis catheter, initial encounter (principal); N18.6 End stage renal disease; K65.8 Other peritonitis; I12.0 Hypertensive chronic kidney disease with stage 5 chronic kidney disease or end stage renal disease; N02.8 Recurrent and persistent hematuria with other morphologic changes; E87.1 Hypo-osmolality and hyponatremia; Z99.2 Dependence on renal dialysis; B96.5 Pseudomonas (aeruginosa) (mallei) (pseudomallei) as the cause of diseases classified elsewhere; D64.9 Anemia, unspecified; E66.9 Obesity, unspecified; Z68.33 Body mass index [BMI] 33.0-33.9, adult; K59.00 Constipation, unspecified; R53.81 Other malaise
CPT/HCPCS: 36415; 36556; 36565; 71045; 74176; 74470; 76937; 80048; 80053; 81001; 82150; 83605; 83690; 83735; 84100; 84132; 85025; 85610; 85730; 86704; 86705; 86706; 87040; 87070; 87071; 87075; 87186; 87205; 87340; 89051; 90962; 99284; C1769; J0692; J1100; J1170; J1580; J1644; J1885; J2001; J2250; J2270; J2405; J2765; J2997; J3370; J7030; J7040; J7050